=== PATIENT | male | born 1940 | race Caucasian/White ===

== ENCOUNTER → 2016-05-12 | Outpatient (CLI) | payer MEDICARE ==
--- NOTE | 2016-05-12 15:12 | REP ---
TRANSRECTAL PROSTATE ULTRASOUND: Transrectal prostate ultrasound is performed. The size of the gland is 5.2 x 2.8 x 5.6 cm, total volume is 43.5 mL. Enlargement of the central zone is compatible with benign prostatic hypertrophy. There are scattered echogenic calcifications and tiny cystic changes. In a peripheral zone on the right, a nodule measures 6 mm in diameter. No other discrete mass is seen. IMPRESSION: Benign prostatic hypertrophy. 6 mm nodule right peripheral zone. Signed by Tommy Mon MD 05/12/2016 05:03 P
[2016-05-13 14:15] LABS: PSA TOTAL 0.8 ng/mL (0.0-4.0)
== END ==
LOC: M RAD 12:51 → M LAB 12:51
PROVIDERS: ATTEND Family Medicine
DX: N40.3 Nodular prostate with lower urinary tract symptoms (principal)

== ENCOUNTER → 2016-10-19 | Outpatient (REF) | payer MEDICARE | LOC: M LAB REF 16:19 | PROVIDERS: ATTEND Internal Medicine Medical Oncology | DX: D72.89 Other specified disorders of white blood cells (principal) ==

== ENCOUNTER → 2020-03-16 | Outpatient (REF) | payer MEDICARE ==
[~2020-03-16] MED LIST: ALLO10TA PO; ATEN25TA PO; ATEN50TA9 PO; ATOR40TA75 PO; LISI-538 PO; METF-839 PO; MUCI600T31 PO; SIMV20TA22 PO; SYMB80INH INH; TAMS1CAP17 PO; VENTAER IN; ZOCO40TA PO
[2020-03-17 17:14] LABS: TOTAL PROTEIN 6.8 GM/DL (6.4-8.2)
== END ==
LOC: M LAB REF 17:19
PROVIDERS: ATTEND Internal Medicine Nephrology
DX: R06.00 Dyspnea, unspecified (principal)

== ENCOUNTER → 2020-07-08 | Outpatient (CLI) | payer MEDICARE ==
[~2020-07-08] MED LIST changes: -LISI-538 PO; +LISI20TA33 PO; +METHACHOLINE KIT (J7674) INH ONE
--- NOTE | 2020-07-08 09:29 | PFTRPT ---
Height: 76.00 Inches Weight: 315.00 Lbs BSA: 2.69 Diagnosis: R05 DATE: 07/08/2020 ORDERED BY: NOMRAN Yarbrough QUALITY: Study of excellent technical quality. PROCEDURE: Under protocol, methacholine was administered. Even after a maximal dose of 25 mg or 188.875 CDUs, no provocation dose ever achieved. IMPRESSION: Negative methacholine challenge study. MTDD
== END ==
LOC: M CARPUL 08:36
PROVIDERS: ATTEND Physician Assistant
DX: R05 Cough (principal)
CPT/HCPCS: 94070; 95070; J7674

== ENCOUNTER → 2021-03-28 | Outpatient (REF) | payer MEDICARE ==
[~2021-03-28] MED LIST changes: -METHACHOLINE KIT (J7674) INH ONE
== END ==
LOC: M LAB REF 16:42
PROVIDERS: ATTEND Internal Medicine Nephrology
DX: N18.30 Chronic kidney disease, stage 3 unspecified (principal); I12.9 Hypertensive chronic kidney disease with stage 1 through stage 4 chronic kidney disease, or unspecified chronic kidney disease

== ENCOUNTER → 2021-07-21 | Outpatient (CLI) | payer MEDICARE ==
[~2021-07-21] MED LIST changes: +GABA-283 PO; +TELM1TAB35 PO
== END ==
LOC: M LABSMTC 09:46
PROVIDERS: ATTEND Anesthesiology
DX: Z01.812 Encounter for preprocedural laboratory examination (principal); Z20.822 Contact with and (suspected) exposure to COVID-19

== ENCOUNTER 2021-07-26 07:39 | Day surgery (SDC) | payer MEDICARE ==
[~2021-07-26] VITALS: Ht 193 cm; Wt 135.6 kg
[~2021-07-26 07:39] MED LIST changes: +NS 1,000 ML IV ONE
[2021-07-26] MEDS ORDERED: ALLO100T PO (08:11)
[2021-07-26] MEDS ORDERED: propofoL 200 MG/20 ML VIAL As Ordered ONE ×2 (08:58→09:33)
[2021-07-26] MEDS ORDERED: fentaNYL 100 MCG/2 ML INJECTION As Ordered ONE (08:58)
[2021-07-26] MEDS ORDERED: LIDOCAINE 2% 100MG/5ML SDV (FOR ANES.) As Ordered ONE (08:58)
[2021-07-26 10:05] VITALS: BP 115/58
== END 2021-07-26 10:05 | disposition home or self-care (01) ==
LOC: M OPP 07:39
PROVIDERS: ATTEND Internal Medicine Gastroenterology
DX: D12.6 Benign neoplasm of colon, unspecified (principal); K57.30 Diverticulosis of large intestine without perforation or abscess without bleeding; K64.8 Other hemorrhoids; R19.4 Change in bowel habit; K29.70 Gastritis, unspecified, without bleeding; R10.13 Epigastric pain; R14.0 Abdominal distension (gaseous); Z79.01 Long term (current) use of anticoagulants; Z79.899 Other long term (current) drug therapy; Z87.891 Personal history of nicotine dependence
CPT/HCPCS: 43239; 45385; 88305; 88342; J3010